=== PATIENT | male | born 1955 | race Caucasian/White ===

== ENCOUNTER 2021-11-09 19:19 | Emergency (ER) | payer OTHER ==
[~2021-11-09] VITALS: Ht 177.8 cm; Wt 90.7 kg
[2021-11-09 19:52] LABS: BASOPHILS 0.1 % (0.0-2.0); HEMATOCRIT 33.5 % (42.0-52.0); HEMOGLOBIN 11.3 gm/dL (14.0-18.0); LYMPHOCYTES 3.5 % (24.0-44.0); MCH 30.5 pg (26.0-34.0); MCHC 33.7 g/dL (28.0-37.0); MCV 90.4 fL (80.0-100.0); MONOCYTES 1.6 % (1.0-8.0); PLATELET COUNT 165 thou/uL (150-400); POLYS 94.8 % (36.0-66.0); RBC 3.71 mil/uL (4.50-6.00); RDW 14.2 % (10.5-14.5); WBC 15.8 thou/uL (4.0-11.0)
[2021-11-09 20:09] LABS: CALCIUM 8.9 mg/dL (8.5-10.1); CREATININE 3.2 mg/dL (0.7-1.3); INR 1.01; POTASSIUM 4.8 mmol/L (3.5-5.1)
[2021-11-09 22:00] VITALS: BP 144/79
== END 2021-11-09 22:24 | disposition home or self-care (01) ==
LOC: ER 19:19
PROVIDERS: Student in an Organized Health Care Education/Training Program
DX: J95.831 Postprocedural hemorrhage of a respiratory system organ or structure following other procedure (principal); Z88.8 Allergy status to other drugs, medicaments and biological substances

== ENCOUNTER → 2021-11-09 | Day surgery (SDC) | payer OTHER ==
[~2021-11-09] VITALS: Ht 175.3 cm; Wt 82.0 kg
[~2021-11-09] MED LIST: ASA81BEC PO; CARVEDILOL12.5 MG PO; DOXAZOSIN MESYLA8 MG PO; IRON325 M1 PO; LEVEMIR100 UNIT/1 SUBQ; LIPITOR 40 MG T40 M1 PO; LOSARTAN POTAS100 MG PO; NORVASC5 MG PO; PREDNISONE 20 M20 MG PO; PROTONIX40 M2 PO; VITAMIN B-121000 MC2 SUBLING; VITAMIN D325 MC5 PO
--- NOTE | ~2021-11-09 | O ---
[facility] [place] [address] OPERATIVE REPORT Name: PATRICE GARRETT Room #: [facility]#: [id number] Admission: 11/09/21 Attend Phys: Torres Reyes MD Discharge: Date of : 53 Report #: [id number] THIS REPORT FOR: cc: FAM - Family physician unknown FAM - Family physician unknown Torres Reyes MD ~ DATE OF SERVICE: 11/09/2021 PREOPERATIVE DIAGNOSES: 1. Melanoma in situ, nasal tip. 2. Mohs defect, nasal tip. POSTOPERATIVE DIAGNOSES: 1. Melanoma in situ, nasal tip. 2. Mohs defect, nasal tip. PROCEDURES PERFORMED: 1. Paramedian forehead flap, code 69325. 2. Adjacent tissue transfer of the nose, less than 10 square cm, code 38620. 3. Septal cartilage graft to the nose, code 02488. 4. Scar contracture release of the face, code 99841. PRIMARY SURGEON: Torres Reyes MD. ANESTHESIA: General. ASSISTANTS: None. COMPLICATIONS: None. ESTIMATED BLOOD LOSS: Approximately 30 mL. SPECIMENS: None. DRAINS: None. IMPLANTS: None. 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 He initially was seen the day after excision and planned for closure shortly thereafter; however, it was noted on preoperative workup that the patient was severely thrombocytopenic and had to be admitted for platelet transfusion and workup. No distinct etiology was noted and his platelets had rebounded to a normal level and therefore, we elected to move forward with the above-named procedures. He signed consent in the office. [address] [address] OPERATIVE REPORT Name: PATRICE GARRETT Room #: [facility] M.R.#: [id number] Admission: 11/09/21 Attend Phys: Torres Reyes MD Discharge: Date of : 53 Report #: [id number] DESCRIPTION OF PROCEDURE: The patient was identified in the preoperative area before being transported to the operating room and placed supine on the operating table. At this point, general endotracheal anesthesia was induced and a timeout was called to ensure patient identity and procedure to be performed. Once all were in agreement, the bandages were removed. The nose was injected locally with 1 percent lidocaine with 1:100,000 epinephrine solution, totalling 10 mL. Additional local anesthetic injection was placed into the patient's right paramedian forehead for an additional 10 mL to achieve adequate local anesthesia and vasoconstriction. Next, the patient was then prepped and draped in the normal sterile fashion. The table rotated 90 degrees. Starting first, the 3-week-old wound was sharply debrided of granulation tissue and scar contracture around its periphery to freshen the skin edges and release scar contracture. The wound edges then were gently undermined in the subcutaneous plane. At this point, attention was turned to harvesting septal cartilage. A cut down in between the medial crura on to the anterior septal angle was performed using a #15 blade scalpel and bilateral septal flaps were raised to reveal the cartilaginous septum. A portion of the cartilaginous septum was removed, maintaining an adequate L-shaped strut and placed into a saline bath. Suction evacuation of this cavity was then performed and a whipstitch of 4-0 plain gut was placed to reapproximate the septal flaps next to one another. At this point, the cartilage of the transected tip was undermined and freshened and the tip defining points were redefined using 6-0 nylon suture to reapproximate the transected dermal cartilages. At this point, a caudal septal extension graft was placed using the harvested septal cartilage and sutured into position using 6-0 nylon suture. At this point, then the bilateral tip defining points were also sutured to the caudal septal extension graft for better shape and rigidity of the new tip complex. This was trimmed before turning attention to coverage of the defect area. This was measured to be approximately 2.4 x 2.4 cm. A template was made out of a piece of foil and transferred to the right paramedian forehead and traced around its periphery. The pedicle was measured to be approximately 1.5 cm lateral to the midline in the approximate area of the medial brow. A standard paramedian forehead flap was raised in the subgaleal plane, leaving the periosteum fully intact. An area approximately 1.5 cm superior to the orbital rim was sharply incised down through periosteum and this was then raised in the subperiosteal plane and sharply released to allow adequate rotation and extension of the paramedian forehead flap down to the defect area. Once this was performed, the forehead was closed in layers using 3-0 Monocryl in the deep layer to reapproximate followed by 4-0 plain gut in a running locking fashion. At this point, the distal portion of the forehead flap was gently thinned of its fascial and muscular component, leaving a small amount of subcutaneous fat and dermis intact. This was then placed into the defect and sutured around its periphery using 5-0 fast absorbing gut suture in a single layer. At this point, the patient was thoroughly cleaned off. A small amount of Xeroform was placed around the pedicle of the flap and ointment applied to [address] [address] OPERATIVE REPORT Name: PATRICE GARRETT Room #: [facility]#: [id number] Admission: 11/09/21 Attend Phys: Torres Reyes MD Discharge: Date of : 53 Report #: [id number] all incision lines. I was very pleased with the functional and cosmetic outcome. All instrument, sponge and needle counts were correct x2 and the patient was reversed from anesthesia and transferred to PACU in stable condition. DISPOSITION: The patient will be discharged after meeting general discharge criteria. He has been given prescriptions for pain medication and antibiotics to be used as directed. He should clean the area at least 3 times per day, keeping all incision lines covered with plain Vaseline ointment at all times. I will see him in approximately 10-14 days and plan for division of the flap pedicle in approximately 4 weeks given that he is a relatively heavy smoker. They may call our office with any issues. By: [id number] Torres Reyes MD /nt
[2021-11-09 09:30] VITALS: BP 169/84
[2021-11-09 09:36] LABS: HEMATOCRIT 32.5 % (42.0-52.0); HEMOGLOBIN 11.1 gm/dL (14.0-18.0); MCH 30.3 pg (26.0-34.0); MCHC 34.1 g/dL (28.0-37.0); MCV 89.1 fL (80.0-100.0); RBC 3.65 mil/uL (4.50-6.00); RDW 13.9 % (10.5-14.5); WBC 11.8 thou/uL (4.0-11.0)
[2021-11-09 09:49] LABS: CALCIUM 8.8 mg/dL (8.5-10.1); CREATININE 2.9 mg/dL (0.7-1.3); POTASSIUM 4.3 mmol/L (3.5-5.1)
--- NOTE | 2021-11-09 11:59 | EKG ---
[address] [address] ELECTROCARDIOGRAM REPORT Name: ETHELPATRICE CARREON Room #: [facility]#: [id number] Admission: 11/09/21 Attend Phys: Trores Reyes MD Discharge: Date of : 53 Report #: [id number] [facility] Test Date: 2021-11-09 Test Time: 09:47:50 Pat Name: PATRICE GARRETT Department: Room: Gender: Travel Med Surg Rn: : 1955 Requested By: Dorsi Richard Order Number: [id number] MD: Eber Givens Measurements Intervals [place] Rate: 56 P: 57 CT: 175 QRS: 8 QRSD: 84 T: 39 QT: 406 QTc: 392 Interpretive Statements Sinus rhythm Probable left atrial enlargement No previous ECG available for comparison Electronically Signed On 11-09-2021 11:58:52 FOURCHETTE SEWER by Eber Givens [email or web address] <ELECTRONICALLY SIGNED> By: Eber Givens MD, [facility] 11/09/21 1158 [id number] [id number] Eber Givens MD, FACC /EPI
[2021-11-09 12:52] VITALS: BP 169/84
== END | disposition home or self-care (01) ==
LOC: OR 08:29
PROVIDERS: Student in an Organized Health Care Education/Training Program; ATTEND Otolaryngology
DX: D03.39 Melanoma in situ of other parts of face (principal); M95.0 Acquired deformity of nose; I10 Essential (primary) hypertension; K21.9 Gastro-esophageal reflux disease without esophagitis; F17.210 Nicotine dependence, cigarettes, uncomplicated; Z98.890 Other specified postprocedural states; Z20.822 Contact with and (suspected) exposure to COVID-19; Z85.828 Personal history of other malignant neoplasm of skin; Z79.899 Other long term (current) drug therapy; Z90.49 Acquired absence of other specified parts of digestive tract; Z88.8 Allergy status to other drugs, medicaments and biological substances
CPT/HCPCS: 50010; 50101; 50386; 50403; 51412; 56524; 56526; 56527; 56528; 57006; 62110; 62900; 70005